=== PATIENT | female | born 1995 | race Two or more races ===

== ENCOUNTER 2018-04-14 18:23 | Emergency (ER) | payer MEDICAID ==
[~2018-04-14] VITALS: Ht 170.2 cm; Wt 59.0 kg
[2018-04-14 18:26] VITALS: BP 121/74
--- NOTE | 2018-04-14 18:58 | NUR ---
PA at bedside.
[2018-04-14] MEDS ORDERED: IBUPROFEN 200 MG TABLET PO ONE (19:00)
[2018-04-14] MEDS ORDERED: IBUPROFEN 200 MG TABLET ONE (19:15)
--- NOTE | 2018-04-14 19:32 | NUR ---
PT GIVEN DC INSTRUCTIONS AND SCRIPTS. PT EDUCATED REGARDING DC MEDICATIONS. PT AMB TO DC WITH STEADY GAIT. NO ACUTE DISTRESS AT DC.
== END 2018-04-14 19:33 | disposition home or self-care (01) ==
LOC: ED 19:10
DX: H66.002 Acute suppurative otitis media without spontaneous rupture of ear drum, left ear (principal)
CPT/HCPCS: 99283

== ENCOUNTER 2018-05-23 21:47 | Emergency (ER) | payer MEDICAID ==
[~2018-05-23] VITALS: Ht 170.2 cm; Wt 59.7 kg
[2018-05-23 21:55] VITALS: BP 104/67
== END 2018-05-23 22:53 | disposition home or self-care (01) ==
LOC: ED 22:40
DX: H66.001 Acute suppurative otitis media without spontaneous rupture of ear drum, right ear (principal); J00 Acute nasopharyngitis [common cold]
CPT/HCPCS: 99283

== ENCOUNTER 2018-09-14 15:05 | Emergency (ER) | payer MEDICAID ==
[~2018-09-14] VITALS: Ht 170.2 cm; Wt 60.5 kg
--- NOTE | 2018-09-14 15:36 | NUR ---
PT AMBULATORY TO BATHROOM AT THIS TIME TO PROVIDE URINE SAMPLE.
--- NOTE | 2018-09-14 15:44 | NUR ---
PT CAME IN TODAY FOR PAINFUL URINATION FOR THE LAST 3 DAYS. STATES SHE HAS HAD MULTIPLE UTI'S IN THE PAST. MD AT BEDSIDE TO UPDATE PT ON POC. NADN. SHAH. CALL LIGHT IN REACH. PT RESTING ON GURNEY WITH FAMILY AT BEDSIDE.
[2018-09-14 16:22] LABS: HCG UR SG 1.025 (1.003-1.030); MICROSCOPIC AUTO
[2018-09-14 16:26] LABS: CULTURE INDICATED? YES
[2018-09-14] MEDS ORDERED: NITROFURANTOIN (MACROBID) 100 MG CAPSULE ONE (16:35)
[2018-09-14 16:37] VITALS: BP 100/61
[2018-09-14] MEDS ORDERED: NITROFURANTOIN (MACROBID) 100 MG CAPSULE PO ONE (17:00)
== END 2018-09-14 16:54 | disposition home or self-care (01) ==
LOC: ED 16:45
DX: N30.00 Acute cystitis without hematuria (principal)
CPT/HCPCS: 81001; 81025; 87077; 87086; 99283

== ENCOUNTER 2020-05-14 00:34 | Emergency (ER) | payer MEDICAID ==
[~2020-05-14] VITALS: Ht 170.2 cm; Wt 70.9 kg
--- NOTE | 2020-05-14 00:58 | NUR ---
assessment made. ERP at bedside.
[2020-05-14] MEDS ORDERED: ONDANSETRON ODT 4 MG ONE (01:13)
[2020-05-14] MEDS ORDERED: ACETAMINOPHEN 500 MG TABLET ONE (01:13)
--- NOTE | 2020-05-14 01:29 | NUR ---
patient medicated. covid swab sample obtained and was sent to lab.
[2020-05-14] MEDS ORDERED: ACETAMINOPHEN 500 MG TABLET PO ONE (01:30)
[2020-05-14] MEDS ORDERED: ONDANSETRON ODT 4 MG PO ONE (01:30)
[2020-05-14 02:06] VITALS: BP 109/69
--- NOTE | 2020-05-14 02:07 | NUR ---
no vomiting / diarrhea noted. chart up for MD to re-eval.
--- NOTE | 2020-05-14 02:41 | NUR ---
re-evaluation done. patient discharged with prescription and instruction. verbalized understanding.
== END 2020-05-14 02:50 | disposition home or self-care (01) ==
LOC: ED 01:04
DX: A08.4 Viral intestinal infection, unspecified (principal); Z20.822 Contact with and (suspected) exposure to COVID-19; R11.2 Nausea with vomiting, unspecified; R19.7 Diarrhea, unspecified
CPT/HCPCS: 99283; Q0162; U0003